=== PATIENT | male | born 1955 | race Hispanic/Latino ===

== ENCOUNTER 2019-02-16 16:20 | Inpatient (IN) | payer BC ==
[2019-02-16] MEDS ORDERED: NA CHLORIDE 0.9% 1,000 ML ONE ×2 (16:50→17:04)
[2019-02-16] MEDS ORDERED: ACETAMINOPHEN 500 MG TAB ONE (17:04)
[2019-02-16] MEDS ORDERED: NA CHLORIDE 0.9% 500 ML ONE (17:04)
[2019-02-16 17:18] LABS: Absolute Lymphocytes (CBC) 0.2 K/uL (0.7-4.9); Basophils % 0.3 % (0-1.3); Hematocrit 39.3 % (39.6-49.0); Lymphocytes % 2.3 % (15.3-44.8); RBC Red Blood Cell Count 4.14 M/uL (4.33-5.43)
--- NOTE | 2019-02-16 17:41 | RAD REPORT ---
EXAM DESCRIPTION: CT - Head Brain Wo Cont - 02/16/2019 5:21 pm CLINICAL HISTORY: Weakness/disorientation COMPARISON: None. TECHNIQUE: Computed axial tomography of the head was obtained. IV contrast was not requested. All CT scans are performed using dose optimization technique as appropriate and may include automated exposure control or mA/KV adjustment according to patient size. FINDINGS: An intracranial bleed is not seen . The ventricles are normal in caliber. No extra-axial fluid collection is noted. Fluid within the sinuses/ mastoids is not seen. IMPRESSION: No acute intracranial abnormality is seen. If patient's symptoms persist MRI of the bra in would be recommended.
--- NOTE | 2019-02-16 17:45 | RAD REPORT ---
EXAM DESCRIPTION: Erik Single View02/16/2019 5:14 pm CLINICAL HISTORY: fever COMPARISON: none FINDINGS: The lungs appear clear of acute infiltrate. The heart is normal size IMPRESSION: No acute abnormalities displayed
[2019-02-16 17:48] LABS: Protime INR 1.34
[2019-02-16 18:21] LABS: ALT/SGPT 35 U/L (12-78); AST/SGOT 51 U/L (15-37); Albumin 2.6 g/dL (3.4-5.0); Alkaline Phosphatase 134 U/L (45-117); BUN Blood Urea Nitrogen 38 mg/dL (7-18); Bicarbonate 22 mmol/L (21-32); Bilirubin Direct < 0.1 mg/dL (0-0.2); Bilirubin Total 0.6 mg/dL (0.2-1.0); Glucose Level 146 mg/dL (74-106); Magnesium 2.1 mg/dL (1.8-2.4); NT PRO-BNP 584 pg/mL (<125); Potassium 4.1 mmol/L (3.5-5.1); Protein, Total 6.9 g/dL (6.4-8.2); Sodium Level 136 mmol/L (136-145); Troponin (Emerg Dept Use Only) < 0.02 ng/mL (0.0-0.045)
[2019-02-16] MEDS ORDERED: CEFTRIAXONE/SWI 1gm 1 GM/10 ML SYR ONE (18:45)
[2019-02-16 19:05] LABS: Urine Amorphous Sediment 1+ /HPF (NONE SEEN); Urine Bacteria >50 /HPF (NONE SEEN); Urine Culture Reflex Order NOT NEEDED; Urine Mucus 2+ /HPF (NONE SEEN); Urine RBC 20-50 /HPF (NONE SEEN)
[2019-02-16 19:05] LABS: Urine Blood 3+ (NEG); Urine Glucose 2+ (NEG); Urine Protein 2+ (NEG)
[2019-02-16 19:41] LABS: Blood Morphology Comment NOT SEEN (NOT SEEN); Platelet Estimate ADEQ; Toxic Granulation PRESENT
--- NOTE | 2019-02-16 19:42 | RAD REPORT ---
EXAM DESCRIPTION: CT - Chest Abdomen Pelvis W Cont - 02/16/2019 7:24 pm CLINICAL HISTORY: C18.7, C20 COMPARISON: January 2018 TECHNIQUE: Computed axial tomography of the chest, abdomen and pelvis was obtained. 100 cc Isovue-30 0 was administered intravenously. Oral contrast was not given. This limits evaluation of bowel All CT scans are performed using dose optimization technique as appropriate and may include automated exposure control or mA/KV adjustment according to patient size. FINDINGS: The lungs are clear. No mediastinal or hilar lymphadenopathy A pleural effusion is not seen. A pericardial effusion is not noted. Small to moderate hiatal hernia The liver, spleen, pancreas, adrenals and left kidney appear unremarkable There is a delay of concentration contrast within the right kidney. Areas of diminished attenuation a re present within the right kidney reaching the periphery. Portions of the right ureter are dilated. A ureteral calculus is not seen. Normal appendix. There is no evidence of diverticulitis. Prostate gland is mildly enlarged Spondylosis involves lumbar spine resulting in spinal stenosis IMPRESSION: Unremarkable CT chest Delayed concentration of contrast within the right kidney with low-attenuation areas indicate an infl ammatory or infectious process.
--- NOTE | 2019-02-16 20:12 | EDPHYS ---
Physician Documentation [facility] Name: Wai Campbell Age: 63 yrs Sex: Male : 1955 Arrival Date: 02/16/2019 Time: 16:31 Bed 24 Private MD: ED Physician Kristopher Moreno HPI: 02/16 16:44 This 63 yrs old Male presents to ER via EMS with complaints of General jmm Weakness, Fever. 16:44 The patient reports fever, not measured (subjective). Onset: The symptoms/episode jmm began/occurred gradually, 5 day(s) ago. Modifying factors: there are no obvious modifying factors. Associated signs and symptoms: Pertinent positives:. 16:44 This is a 63 year old male with a history of DM that presents to the ED with complaints jmm of weakness, body aches, painful urination beginning this past Thursday. Patient states he misstep while getting out of his truck and was unable to get up due to weakness. Denies chest pain, denies cough, denies abdominal pain. . Historical: - Allergies: 16:45 No Known Allergies; iw - Home Meds: 17:06 Glipizide Oral [Active]; Metformin Oral [Active]; Jardiance oral oral [Active]; iw - PMHx: 17:06 Diabetes - NIDDM; iw - PSHx: 17:06 neck; iw - Immunization history:: Adult Immunizations up to date. - Ebola Screening: : Patient negative for fever greater than or equal to 101.5 degrees Fahrenheit, and additional compatible Ebola Virus Disease symptoms Patient denies exposure to infectious person Patient denies travel to an Ebola-affected area in the 21 days before illness onset No symptoms or risks identified at this time. - Social history:: Smoking status: Patient/guardian denies using tobacco. ROS: 16:44 Cardiovascular: Negative for chest pain, palpitations, and edema, Respiratory: Negative jmm for shortness of breath, cough, wheezing, and pleuritic chest pain, Abdomen/GI: Negative for abdominal pain, nausea, vomiting, diarrhea, and constipation. 16:44 Constitutional: Positive for body aches, fever. 16:44 : Positive for urinary symptoms. 16:44 All other systems are negative. Exam: 16:44 Head/Face: atraumatic. Eyes: EOMI, no conjunctival erythema appreciated ENT: Moist [facility] Mucus Membranes Neck: Trachea midline, Supple Chest/axilla: Normal chest wall appearance and motion. Cardiovascular: Regular rate and rhythm. No edema appreciated 16:44 Abdomen/GI: Non distended, soft Back: Normal ROM Skin: General appearance color normal MS/ Extremity: Moves all extremities, no obvious deformities appreciated, no edema noted to the lower extremities Neuro: Awake and alert, normal gait Psych: Behavior is normal, Mood is normal, Patient is cooperative and pleasant 16:44 Constitutional: The patient appears alert, awake, anxious, uncomfortable. 16:44 Respiratory: the patient does not display signs of respiratory distress, Respirations: normal, Breath sounds: are clear throughout. Vital Signs: 16:35 BP 108 / 67; Pulse 115; Resp 28; Temp 101.2(O); Pulse Ox 97% ; Weight 87.54 kg; Height ca1 5 ft. 7 in. (170.18 cm); 16:46 Resp 38; lt1 17:40 BP 107 / 67; Pulse 93; Resp 20 S; Pulse Ox 97% on R/A; ca1 18:28 BP 123 / 88; Pulse 83; Resp 17 S; Temp 98.9(O); Pulse Ox 95% on R/A; ca1 20:00 BP 133 / 76; Pulse 80; Resp 18; Pulse Ox 97% on R/A; wh 21:40 BP 106 / 58; Pulse 71; Resp 18; Temp 98.1; Pulse Ox 97% on R/A; wh 16:35 Body Mass Index 30.23 (87.54 kg, 170.18 cm) ca1 MDM: 16:44 Patient medically screened. [facility] 20:10 Data reviewed: vital signs, nurses notes. Counseling: I had a detailed discussion with [facility] the patient and/or guardian regarding: the historical points, exam findings, and any diagnostic results supporting the discharge/admit diagnosis, lab results, radiology results, the need for further work-up and treatment in the hospital. ED course: I discussed the patient with Dr. Norman whom accepted admission. . 02/16 16:45 Order name: Basic Metabolic Panel; Complete Time: 18:34 [facility] 02/16 16:45 Order name: CBC with Diff; Complete Time: 19:46 [facility] 02/16 16:45 Order name: LFT's; Complete Time: 18:34 [facility] 02/16 16:45 Order name: Magnesium; Complete Time: 18:34 [facility] 02/16 16:45 Order name: NT PRO-BNP; Complete Time: 18:34 [facility] 02/16 16:45 Order name: PT-INR; Complete Time: 17:57 [facility] 02/16 16:45 Order name: Troponin (emerg Dept Use Only); Complete Time: 18:34 [facility] 02/16 16:45 Order name: Lactate; Complete Time: 17:39 [facility] 02/16 16:45 Order name: Blood Culture Adult (2) [facility] 02/16 16:45 Order name: Procalcitonin; Complete Time: 18:34 [facility] 02/16 16:45 Order name: Flu; Complete Time: 18:12 [facility] 02/16 16:46 Order name: Glucose, Ancillary Testing; Complete Time: 16:57 [facility] 02/16 16:46 Order name: Urine Culture [facility] 02/16 18:15 Order name: Urine Dipstick--Ancillary (enter results); Complete Time: 19:15 02/16 16:45 Order name: XRAY Chest (1 view); Complete Time: 17:52 [facility] 02/16 16:45 Order name: EKG; Complete Time: 16:47 [facility] 02/16 16:45 Order name: Cardiac monitoring; Complete Time: 16:54 [facility] 02/16 16:45 Order name: EKG - Nurse/Tech; Complete Time: 17:05 [facility] 02/16 16:45 Order name: IV Saline Lock; Complete Time: 16:54 [facility] 02/16 16:45 Order name: Labs collected and sent; Complete Time: 16:54 [facility] 02/16 16:45 Order name: O2 Per Protocol; Complete Time: 16:54 [facility] 02/16 16:45 Order name: O2 Sat Monitoring; Complete Time: 16:54 [facility] 02/16 16:46 Order name: CT Head Brain wo Cont; Complete Time: 17:52 [facility] 02/16 18:18 Order name: Urine Microscopic Only; Complete Time: 19:15 [facility] 02/16 18:36 Order name: CT Chest, Abdomen, Pelvis - W/Contrast; Complete Time: 19:46 [facility] 02/16 19:41 Order name: Manual Differential; Complete Time: 19:46 [facility] 02/16 19:59 Order name: Glucose, Ancillary Testing; Complete Time: 20:00 [facility] 02/16 16:46 Order name: Urine Dipstick-Ancillary (obtain specimen); Complete Time: 18:31 [facility] Administered Medications: 17:01 Drug: NS 0.9% (30 ml/kg) 30 ml/kg Route: IV; Rate: bolus; Site: left antecubital; ca1 21:44 Follow up: Response: No adverse reaction; IV Status: Completed infusion 17:07 Drug: Tylenol 1000 mg Route: PO; ca1 18:32 Follow up: Response: No adverse reaction; Temperature is decreased ca1 21:44 Follow up: Response: No adverse reaction; Temperature is decreased 18:45 Drug: Rocephin 1 grams Route: IV; Rate: calculated rate; Site: left antecubital; ca1 21:44 Follow up: Response: No adverse reaction; IV Status: Completed infusion Disposition: 02/16/19 20:11 Hospitalization ordered by Jay Jay Norman for Observation. Preliminary diagnosis are Fever, unspecified, Urinary tract infection, site not specified, Syncope and collapse, Dehydration. - Bed requested for Telemetry/MedSurg (observation). - Status is Observation. - Condition is Stable. - Problem is new. - Symptoms have improved. UTI on Admission? Yes Addendum: 02/19/2019 19:33 Co-signature as Attending Physician, Kristopher Moreno MD. r n Signatures: Dispatcher [employer] [facility] Zabrina Diaz RN RN dw Mickail, Joel, PA PA [facility] Radha Paz RN RN Kristopher Moreno MD MD rn [facility] Samantha Hummel RN RN ca1 Corrections: (The following items were deleted from the chart) 02/16 21:27 20:11 Hospitalization Ordered by Jay Jay Norman for Observation. Preliminary diagnosis dw is Fever, unspecified; Urinary tract infection, site not specified; Syncope and collapse; Dehydration. Bed requested for Telemetry/MedSurg (observation). Status is Observation. Condition is Stable. Problem is new. Symptoms have improved. UTI on Admission? Yes. [facility] 21:45 21:44 This is a 63 year old male with a history of DM that presents to the ED with [facility] complaints of weakness, body aches, painful urination beginning this past Thursday. Patient states he misstep while getting out of his truck and was unable to get up due to weakness. Denies chest pain, denies cough, denies abdominal pain. . [facility] 22:22 21:27 02/16/2019 20:11 Hospitalization Ordered by Jay Jay Norman for Observation. wh Preliminary diagnosis is Fever, unspecified; Urinary tract infection, site not specified; Syncope and collapse; Dehydration. Bed requested for Telemetry/MedSurg (observation). Status is Observation. Condition is Stable. Problem is new. Symptoms have improved. UTI on Admission? Yes. dw
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
[2019-02-16] MEDS ORDERED: ONDANSETRON 4 MG/2 ML VIAL IV PRN (22:28)
[2019-02-16] MEDS ORDERED: NA CHLORIDE 0.9% 500 ML IV ONE (22:28)
[2019-02-16 22:55] VITALS: BMI 31.7
[2019-02-16] MEDS: NA CHLORIDE 0.9% 1,000 ML IV SCH (23:16)
[2019-02-17] MEDS: HEPARIN 5000 UNIT/ML 1 ML VIAL SQ SCH ×3 (00:35→16:27)
[2019-02-17] MEDS: INSULIN -REGULAR HUMAN 50 UNIT/0.5 ML ML SQ SCH ×4 (07:30→20:19)
[2019-02-17 07:39] LABS: Absolute Lymphocytes (CBC) 0.5 K/uL (0.7-4.9); Basophils % 0.5 % (0-1.3); Hematocrit 38.2 % (39.6-49.0); Lymphocytes % 6.8 % (15.3-44.8); MPV 8.4 fL (7.6-11.3); RBC Red Blood Cell Count 4.02 M/uL (4.33-5.43)
[2019-02-17] MEDS: NA CHLORIDE 0.9% 1,000 ML IV SCH ×3 (08:08→22:28)
[2019-02-17] MEDS: ACETAMINOPHEN 500 MG TAB PO PRN (08:10)
[2019-02-17] MEDS: CEFTRIAXONE/SWI 1gm 1 GM/10 ML SYR IV SCH (08:11)
[2019-02-17 08:16] LABS: Phosphorus 2.4 mg/dL (2.5-4.9); Potassium 3.5 mmol/L (3.5-5.1)
--- NOTE | 2019-02-17 08:18 | EKG ---
Test Date: 2019-02-16 Test Time: 16:29:30 Label Printer: ELDA MEASUREMENT RESULTS: Intervals: Rate: 117 [place]: 140 QRSD: 90 QT: 336 QTc: 468 Aguirre: P: 49 [place]: 140 QRS: 97 T: -2 INTERPRETIVE STATEMENTS: Sinus tachycardia Rightward axis Nonspecific T wave abnormality Abnormal ECG No previous ECG available for comparison Electronically Signed On 02-17-19 08:16:07 GENERAL [employer]ICE WORKER by Alexei Mcneal
[2019-02-17] MEDS ORDERED: CEFTRIAXONE 1 GM/NS 50 ML 1 GM/50 ML BAG IV SCH (09:00)
--- NOTE | 2019-02-17 13:56 | P.PN ---
Subjective Date of Service: 02/17/19 Chief Complaint: Altered mental status Subjective: No C/O voiced, Tolerating diet, Improving, Doing well Review of Systems 10-point ROS is otherwise unremarkable Physical Examination - Vital Signs Temperature: 99.4 F Blood Pressure: 130/64 Pulse: 101 Respirations: 17 Pulse Ox (%): 96 - Physical Exam General: Alert, In no apparent distress HEENT: Atraumatic, PERRLA, EOMI Neck: Supple, JVD not distended Respiratory: Clear to auscultation bilaterally, Normal air movement Cardiovascular: Regular rate/rhythm, Normal S1 S2 Gastrointestinal: Normal bowel sounds, No tenderness Musculoskeletal: No tenderness Integumentary: No rashes Neurological: Normal speech, Normal tone, Normal affect Lymphatics: No axilla or inguinal lymphadenopathy - Studies Laboratory Data (last 24 hrs) 02/16/19 17:41: PT 15.6 H, INR 1.34 02/16/19 17:41: Sodium 136, Potassium 4.1, BUN 38 H, Creatinine 1.32 H, Glucose 146 H, Magnesium 2.1, Total Bilirubin 0.6, AST 51 H, ALT 35, Alkaline Phosphatase 134 H 02/16/19 16:55: WBC 7.8, Hgb 13.5 L, Hct 39.3 L, Plt Count 186 Microbiology Data (last 24 hrs): 02/16/19 16:55 Nasopharnyx Influenza Type A Antigen Screen - Final 02/16/19 16:55 Nasopharnyx Influenza Type B Antigen Screen - Final Medications List Reviewed: Yes Assessment And Plan - Current Problems (Diagnosis) (1) Sepsis Current Visit: Yes Status: Acute Plan: Sepsis most likely 2.2 to UTI due to Obstructed Uropathy -IV rocephin at this time -Urine culture pending -Hemodynamically stable -Will monitor and f.u with Culture Qualifiers: Sepsis type: sepsis due to unspecified organism Sepsis acute organ dysfunction status: with acute organ dysfunction Severe sepsis acute organ dysfunction type: acute renal failure Acute renal failure type: with acute tubular necrosis (2) Acute renal failure Current Visit: Yes Status: Acute Plan: Acute Renal Failure most likely 2.2 to Obstructed ureter -IV fluids for now -Avoid Nephrotoxic agent -Improved today Qualifiers: Acute renal failure type: with acute tubular necrosis Qualified Code(s): N17.0 - Acute kidney failure with tubular necrosis (3) Metabolic encephalopathy Current Visit: Yes Status: Acute Plan: Toxic Encephalopathy -Now Resolved. AAOx 3 (4) UTI (urinary tract infection) Current Visit: Yes Status: Acute Plan: UA with UTI -Urine Culture + for Gram - rods -Will f.u with Results Qualifiers: Urinary tract infection type: acute cystitis (5) Enlarged prostate Current Visit: Yes Status: Acute Plan: Patient reports a history of enlarged prostate but not on any medication for BPH Discharge Plan: Home Plan to discharge in: Greater than 2 days - Code Status/Comfort Care Code Status Assessed: Yes Critical Care: No
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
[2019-02-18] MEDS: HEPARIN 5000 UNIT/ML 1 ML VIAL SQ SCH ×3 (00:16→16:42)
[2019-02-18] MEDS: NA CHLORIDE 0.9% 1,000 ML IV SCH ×5 (00:16→20:47)
[2019-02-18] MEDS: ACETAMINOPHEN 500 MG TAB PO PRN (00:27)
[2019-02-18] MEDS ORDERED: FUROSEMIDE 40 MG/4 ML VIAL ONE (05:44)
[2019-02-18 06:21] LABS: Phosphorus 2.9 mg/dL (2.5-4.9); Potassium 3.4 mmol/L (3.5-5.1)
[2019-02-18] MEDS: INSULIN -REGULAR HUMAN 50 UNIT/0.5 ML ML SQ SCH ×4 (07:30→20:39)
[2019-02-18] MEDS: CEFTRIAXONE/SWI 1gm 1 GM/10 ML SYR IV SCH (08:32)
--- NOTE | 2019-02-18 08:38 | RAD REPORT ---
EXAM DESCRIPTION: NM - Kidney Imag W/Flow F W - 02/18/2019 7:05 am CLINICAL HISTORY: r/o r uvj obstruction COMPARISON: Chest Abdomen Pelvis W Cont dated 02/16/2019 TECHNIQUE: Following intravenous administration of mCi Tc99m MAG-3, posterior dynamic angiogram an d sequential static images of the kidneys were obtained. mg Lasix was administered intravenously 10 minutes into the study. Static post-void imaging was also performed. FINDINGS: FLOW: There is prompt/symmetric flow to bilateral kidneys. SPLIT FUNCTION: Differential function is 54% on the left and 46% on the right. RENOGRAM AND COLLECTING SYSTEM CLEARANCE: Symmetric renal size and normal orientation. Qzmy-oz-xhlra ate right-sided hydronephrosis and hydroureter. There is delayed rise to peak and washout seen of th e right kidney collecting system..Time to peak activity is approximately 2.7min on the left and 5.3mi n on the right (normal 3-5min). Post-Lasix time to half (T1/2) is 4.3min on the left and 22min on the right (normal less than 10 minutes). IMPRESSION: Bbcg-ja-[id number] right-sided hydronephrosis and hydroureter is seen with slow washout ov er time following Lasix. This would be compatible with mild to moderate grade anatomic obstruction at the level of UVJ.
[2019-02-18] MEDS ORDERED: POTASSIUM CL SA 10 MEQ TAB PO ONE ×2 (09:00→15:09)
[2019-02-18] MEDS: KCL 20 MEQ/100 mL IVPB 20 MEQ/100 ML BAG IV SCH ×2 (10:41→13:00)
[2019-02-18] MEDS ORDERED: NA CHLORIDE 0.9% 1,000 ML ONE (13:07)
--- NOTE | 2019-02-18 13:26 | P.PN ---
Subjective Date of Service: 02/18/19 Chief Complaint: Altered mental status Subjective: No C/O voiced, Ambulating, NPO (For Cystoscopy today with Dr García) , Doing well Review of Systems 10-point ROS is otherwise unremarkable Physical Examination - Vital Signs Temperature: 97.5 F Blood Pressure: 114/61 Pulse: 77 Respirations: 18 Pulse Ox (%): 96 - Physical Exam General: Alert, In no apparent distress HEENT: Atraumatic, PERRLA, EOMI Neck: Supple, JVD not distended Respiratory: Clear to auscultation bilaterally, Normal air movement Cardiovascular: Regular rate/rhythm, Normal S1 S2 Gastrointestinal: Normal bowel sounds, No tenderness Musculoskeletal: No tenderness Integumentary: No rashes Neurological: Normal speech, Normal tone, Normal affect Lymphatics: No axilla or inguinal lymphadenopathy - Studies Microbiology Data (last 24 hrs): 02/16/19 18:07 Catheterized Urine Vesta Count - Final >100,000 CFU/ML. 02/16/19 18:07 Catheterized Urine - Final Escherichia Coli Medications List Reviewed: Yes Assessment And Plan - Current Problems (Diagnosis) (1) Sepsis Current Visit: Yes Status: Acute Plan: Sepsis most likely 2.2 to UTI due to Obstructed Uropathy -IV rocephin at this time -Urine culture + for ecoli. Can be switched to PO augmentin -Hemodynamically stable - Qualifiers: Sepsis type: sepsis due to unspecified organism Sepsis acute organ dysfunction status: with acute organ dysfunction Severe sepsis acute organ dysfunction type: acute renal failure Acute renal failure type: with acute tubular necrosis (2) Acute renal failure Current Visit: Yes Status: Acute Plan: Acute Renal Failure most likely 2.2 to Obstructed ureter -Planned for cystoscopy with Dr García for obstructed ureter -IV fluids for now, Pt does have improvement -Avoid Nephrotoxic agent Qualifiers: Acute renal failure type: with acute tubular necrosis Qualified Code(s): N17.0 - Acute kidney failure with tubular necrosis (3) UTI (urinary tract infection) Current Visit: Yes Status: Acute Plan: UA with UTI -Urine Culture + for ECOLI -IV rocephin for now, which can be changed to Augmentin on discharge Qualifiers: Urinary tract infection type: acute cystitis Hematuria presence: without hematuria Qualified Code(s): N30.00 - Acute cystitis without hematuria (4) Metabolic encephalopathy Current Visit: Yes Status: Acute Plan: Toxic Encephalopathy -Now Resolved. AAOx 3 (5) Enlarged prostate Current Visit: Yes Status: Acute Plan: Patient reports a history of enlarged prostate but not on any medication for BPH -urology has been consulted. Appreciated recommendations - Plan Pending clinical improvement at this time. Will follow up with patient post cystoscopy Discharge Plan: Home Plan to discharge in: 48 Hours - Code Status/Comfort Care Code Status Assessed: Yes Critical Care: No
[2019-02-18] MEDS ORDERED: GENTAMICIN 100 MG/100 ML BAG 100 ML IV ONE (13:30)
[2019-02-18] MEDS ORDERED: PROPOFOL 200 MG/20 ML VIAL IV ONE (13:33)
[2019-02-18] MEDS ORDERED: FENTANYL CITR 100 MCG/2 ML ONE (13:33)
[2019-02-18] MEDS ORDERED: MIDAZOLAM HCL 2 MG/2 ML INJ ONE (13:34)
[2019-02-18] MEDS ORDERED: LIDOCAINE 1% MPF 5 ML VIAL ONE (13:34)
[2019-02-18] MEDS ORDERED: NS 0.9% VIAL 20 ML ONE (13:53)
--- NOTE | 2019-02-18 14:35 | RAD REPORT ---
EXAM DESCRIPTION: RAD - Urethrocystogrphy Retrograde - 02/18/2019 2:26 pm CLINICAL HISTORY: STENT PLACEMENT COMPARISON: No comparisons FINDINGS: Total fluoro time: 54 seconds
[2019-02-18 15:34] LABS: Urine Appearance CLEAR; Urine Color YELLOW; Urine Glucose 2+ (NEG); Urine Specific Gravity 1.015 (1.005-1.030)
[2019-02-18 15:35] LABS: Urine Bilirubin NEGATIVE (NEG); Urine Blood 3+ (NEG); Urine Microscopic Reflex ORDER UMIC; Urine Protein 1+ (NEG); Urine Urobilinogen 0.2 mg/dL (0.2-1.0); Urine pH 5.5 (5.0-7.0)
[2019-02-18 15:37] LABS: Urine Bacteria <20 /HPF (NONE SEEN); Urine Coarse Granular Casts 0-5 /LPF (NONE SEEN); Urine Culture Reflex Order NOT NEEDED; Urine Mucus 1+ /HPF (NONE SEEN)
[2019-02-18] MEDS ORDERED: ROSUVASTATIN 10 MG TAB PO SCH (21:00)
[2019-02-19] MEDS: HEPARIN 5000 UNIT/ML 1 ML VIAL SQ SCH ×2 (01:39→08:12)
[2019-02-19] MEDS: NA CHLORIDE 0.9% 1,000 ML IV SCH (06:50)
[2019-02-19 07:23] VITALS: O2SAT 96
[2019-02-19] MEDS: INSULIN -REGULAR HUMAN 50 UNIT/0.5 ML ML SQ SCH ×2 (08:12→11:43)
[2019-02-19] MEDS: CEFTRIAXONE/SWI 1gm 1 GM/10 ML SYR IV SCH (08:12)
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
[2019-02-19 14:44] VITALS: BP 130/69; TEMP 98
== END 2019-02-19 14:47 | disposition home or self-care (01) | DRG 853 ==
LOC: ER 16:20 → 2ND 21:52
PROVIDERS: ADMIT Internal Medicine; ATTEND Internal Medicine
PROC: 0T768DZ Dilation of Right Ureter with Intraluminal Device, Via Natural or Artificial Opening Endoscopic (ICD-10-PCS; principal; 2019-02-18 14:30)
DX: A41.9 Sepsis, unspecified organism (principal); N17.0 Acute kidney failure with tubular necrosis; G93.41 Metabolic encephalopathy; N30.00 Acute cystitis without hematuria; N12 Tubulo-interstitial nephritis, not specified as acute or chronic; N13.4 Hydroureter; R65.20 Severe sepsis without septic shock; N40.0 Benign prostatic hyperplasia without lower urinary tract symptoms; E11.9 Type 2 diabetes mellitus without complications; I10 Essential (primary) hypertension; B96.20 Unspecified Escherichia coli [E. coli] as the cause of diseases classified elsewhere
CPT/HCPCS: 36415; 51610; 70450; 71045; 71260; 74177; 74450; 78708; 80048; 80076; 81003; 81015; 82947; 83605; 83735; 83880; 84100; 84132; 84145; 84484; 85025; 85610; 87040; 87077; 87086; 87088; 87186; 87205; 87804; 93005; 94760; 96365; 96366; 99285; A9562; J0696; J1580; J1644; J1940; J2250; J2704; J3010; J7030; J7040; Q9967